=== PATIENT | male | born 1985 | race American Indian/Alaskan Native ===

== ENCOUNTER 2020-02-03 17:54 | Emergency (ER) | payer SELFPAY ==
[2020-02-03 18:11] VITALS: BP 124/76
--- NOTE | 2020-02-03 18:33 | Emergency Department Report ---
Chief Complaint: Urogenital-Male Stated Complaint: IRRIATION Time Seen by Provider: 02/03/20 18:12 - HPI History of Present Illness: This pleasant 34-year-old male presents the emergency department chief complaint of dysuria over the past 2 days. Patient reports there has been a new unprotected sexual partner. He denies any discharge. Patient denies any known past medical history, current medication use or known allergies to medications. - ROS Review of Systems: Patient denies any associated fever, chills, night sweats, headache, dizziness, blurred vision, nausea, vomiting, diarrhea, chest pain, shortness of breath, abd ominal pain, testicular pain. - Exam Vital Signs: Vital Signs 02/03/20 18:09 Temperature 98.4 F Pulse Rate 69 Respiratory 16 Rate Blood Pressure 124/76 O2 Sat by Pulse 100 Oximetry Physical Exam: GENERAL APPEARANCE: Well-developed, well-nourished, no acute distress HEENT: Normocephalic and atraumatic. No scleral icterus. Pupils are equal, round, and reactive to light and accommodation. No conjunctival injection is noted. Oropharynx is clear. Mouth revealed good dentition, no lesions. Tympanic membranes are clear. NECK: Supple. Trachea is midline. No evidence of thyroid enlargement. No lymphadenopathy or tenderness. CHEST: Symmetric. Nontender to palpation. LUNGS: Breath sounds are equal and clear bilaterally. No wheezes, rhonchi, or rales. HEART: Regular rate and rhythm with normal S1 and S2. No murmurs, gallops, or rubs. BREASTS: Symmetrical. No skin or nipple retractions. No nipple discharges or masses. ABDOMEN: Soft, flat, and benign. No mass, tenderness, guarding, or rebound. No organomegaly or hernia. Bowel sounds are present. No CVA tenderness or flank mass. GENITOURINARY: Deferred RECTAL: Deferred EXTREMITIES: No cyanosis, clubbing, or edema. No lower extreme edema, negative Homans sign bilaterally NEUROLOGIC: No focal sensory or motor deficits are noted. Gait is normal. Crania l nerves II through XII are intact. Deep tendon reflexes are intact. PSYCHIATRIC: The patient is awake, alert, and oriented x3. Recent and remote memory is intact. Appropriate mood and affect. SKIN: Warm, dry, and well perfused. Good turgor. No lesions, nodules or rashes are noted. No onychomycosis. LYMPHATICS: No cervical, axillary, or groin adenopathy is noted. MSE screening note: Focused history and physical exam performed. Due to findings the following was ordered: Patient presented with dysuria. Explained to the patient this is most likely secondary to an STD and he was concerned with this. Educated the patient that unfortunately do not treat for this or test for this in the emergency department and they would be best served following up with the [facility] or the L department. He verbalized understanding of instructions and he understood that any of his partners is also suffered. Needed to be treated and tested. ED Disposition for MSE Clinical Impression: Urethritis Disposition: Z MED SCREENING EXAM-LEFT Is pt being admited?: No Condition: Stable Instructions: Nonspecific Urethritis in Men (ED) Referrals: [facility] [Provider Group] - 3-5 Days [facility] [Other] - 3-5 Days Forms: STI Treatment and Prevention Time of Disposition: 18:32
[2020-02-03 19:24] LABS: Bilirubin,Urine NEG (Negative); Blood,Urine NEG (Negative); Color,Urine Yellow (Yellow); Mucus,Urine FEW /HPF; Protein,Urine <15 mg/dL mg/dL (Negative)
== END 2020-02-03 18:35 | disposition left against medical advice (07) ==
LOC: ED 17:54
DX: N34.2 Other urethritis (principal); Z53.21 Procedure and treatment not carried out due to patient leaving prior to being seen by health care provider
CPT/HCPCS: 81001; 87086